=== PATIENT | female | born 1950 | race Caucasian/White ===

== ENCOUNTER → 2025-04-24 | Outpatient (CLI) | payer OTHER, SELFPAY ==
--- NOTE | 2025-04-24 09:10 | EMB_PTH ---
PATIENT: NETTE [place] LOC: [facility] U#:[id number] AGE/SX: 75/F ROOM: RE04/24/[address]: KULDEEP Urrutia : 1950 BED: DIS: 04/24/2025 SPEC #: [id number] RECD: 04/24/25 10:15 STATUS: EDEN JAMARCUS #: [id number] UMA: 04/24/25 09:[address]: Cristy Davalos NP DEPT: SURGICAL PATHOLOGY RECD BY: Bhanu Smith Tissues: A - Endometrium, NOS Procedures: Surgery Specimen Level IV HEADER OPERATION: Endometrial biopsy PRE-OP DIAGNOSIS: Postmenopausal bleeding TISSUE SUBMITTED: A- Endometrial lining MICROSCOPIC DIAGNOSIS A. Endometrium, biopsy: * Few fragments of lower uterine segment/endocervix with cystic change. * Scant endometrium - see note. * Note: Very scant endometrium is present. Clinical correlation is necessary to assess the adequacy of the endometrial sampling. MICROSCOPIC DESCRIPTION Slides are reviewed. GROSS DESCRIPTION A. Received in formalin in a container labeled with the patient's name, date of , and with the accompanying paperwork indicating, EMB are multiple tiny red-zafar fragments of soft tissue admixed with blood and mucus measuring 1.0 x 0.7 x 0.3 cm in aggregate. Submitted in toto in A1. SMB 04-24-2025 CPT:53809
== END | disposition home or self-care (01) ==
LOC: LABSPEC 10:40
PROVIDERS: Referring Provider Nurse Practitioner Women's Health; Visit Provider Nurse Practitioner Women's Health
DX: N95.0 Postmenopausal bleeding (principal)
CPT/HCPCS: 88305